=== PATIENT | female | born 1995 | race Caucasian/White ===

== ENCOUNTER 2018-12-30 15:43 | Emergency (ER) | payer OTHER ==
--- NOTE | 2018-12-30 15:52 | PDOC ---
Rapid Medical Evaluation Time Seen by Provider: 12/30/18 15:51 Medical Evaluation: 12/30/18 15:51 I have performed a brief in-person evaluation of this patient. The patient presents with a chief complaint of:L foot pain x 1 week. No trauma. Denies pmhx Pertinent physical exam findings:deferred to ED provider I have ordered the following:nothing The patient will proceed to the ED for further evaluation. Discharge Disposition - Diagnosis Foot pain, left - Referrals - Patient Instructions - Post Discharge Activity
[2018-12-30 16:06] VITALS: BMI 25.4
--- NOTE | 2018-12-30 17:00 | PDOC ---
History of Present Illness - General Chief Complaint: Chest Pain Stated Complaint: CHEST PAIN JOB INJURY Time Seen by Provider: 12/30/18 15:51 History Source: Patient Exam Limitations: No Limitations - History of Present Illness Initial Comments: 12/30/18 16:52 23 y/o female with PMH of anxiety (however she does not take anything for her anxiety, presented to the ED with complaints of chest pain and palpitations. Patient states that the pain started while she was in class, she describes it as a sharp almost muscle cramp, at its worst was a 7/10. she endorses associated palpitations and dizziness- this has happened to her in the past. She does endorse to not drinking enough water and to drinking lots of cough and red bull. However, all she had was one cup of coffee this morning. She has had this in the past where it has been associated with palpitations. The pain is not associated with radiation. She does state that she did have some shortness of breath this AM with it as well. Of note, she recently traveled to [place] (was there from december 07-december 13). she denies any recent illnesses or any sick contacts. She had seen a settlement processor back in 2012 she thinks where an EKG was done at that time which was normal. She is not on any OCP's. She endorses a strong family history of cardiac problems. Timing/Duration: constant Severity: moderate Associated Symptoms: reports: chest pain, shortness of breath. denies: diaphoresis, headaches Past History - Travel Traveled outside of the country in the last 30 days: No Close contact w/someone who was outside of country & ill: No - Past Medical History Allergies/Adverse Reactions: Allergies Allergy/AdvReac Type Severity Reaction Status Date / Time No Known Allergies Allergy Verified 12/30/18 16:03 Home Medications: Ambulatory Orders Sulfamethoxazole/Trimethoprim [Bactrim Ds Tablet] 1 each PO BID #10 tablet 12/30 COPD: No - Surgical History Other Surgical History: 12/30/18 17:00 tonsils and adenoids - Family Disease History Family Disease History: Diabetes: Father, Mother, Heart Disease: Father, Mother - Reproductive History LMP comment: ended period on 12/28 LMP Normal: Yes Is Patient Now?: No - Suicide/Smoking/Psychosocial Hx Smoking History: Current every day smoker Have you smoked in the past 12 months: Yes Number of Cigarettes Smoked Daily: 3 Information on smoking cessation initiated: No Hx Alcohol Use: No Drug/Substance Use Hx: No Review of Systems - Review of Systems Able to Perform ROS?: Yes Is the patient limited Armenian proficient: No Constitutional: No: Fever HEENTM: No: Blurred Vision Respiratory: No: Cough Cardiac (ROS): Yes: Chest Pain, Lightheadedness, Palpitations : Yes: Burning. No: Dysuria, Discharge Musculoskeletal: No: Muscle Weakness Neurological: Yes: Headache. No: Numbness *Physical Exam - Vital Signs Last Vital Signs Temp Pulse Resp BP Pulse Ox 97.8 F 64 18 119/84 99 12/30/18 16:04 12/30/18 16:04 12/30/18 16:04 12/30/18 16:04 12/30/18 16:04 - Physical Exam General Appearance: Yes: Nourished Neck: positive: Normal Thyroid Respiratory/Chest: positive: Lungs Clear, Normal Breath Sounds Cardiovascular: positive: Regular Rhythm, Regular Rate, S1, S2 Gastrointestinal/Abdominal: positive: Normal Bowel Sounds, Flat, Soft. negative : Tender Musculoskeletal: negative: CVA Tenderness Integumentary: positive: Normal Color Neurologic: positive: Fully Oriented, Alert ED Treatment Course - LABORATORY CBC & Chemistry Diagram: 12/30/18 17:00 12/30/18 17:00 Medical Decision Making - Medical Decision Making 12/30/18 17:03 cbc/cmp/cardiac profile ekg *DC/Admit/Observation/Transfer Diagnosis at time of Disposition: Chest pain, Palpitations - Discharge Dispostion Disposition: HOME Condition at time of disposition: Stable - Prescriptions Prescriptions: Sulfamethoxazole/Trimethoprim [Bactrim Ds Tablet] 1 each PO BID #10 tablet - Referrals Referrals: Romeo Bobby MD [Staff Physician] - 1 week Home Banks MD [Staff Physician] - 1 week - Patient Instructions Printed Discharge Instructions: GERD Diet, DI for Gastroesophageal Reflux Disease (GERD) Additional Instructions: we are sending you home with antibiotics for your urinary tract infection; take the medication Bactrim twice a day for 5 days we are referring you to a primary care physician to follow up with in one week we are referring you to a settlement processor for you to follow up with in one week *if you begin to have worsening or concerning symptoms please return to the emergency room immediately - Post Discharge Activity - Attestations Physician Attestion: 12/30/18 18:21 Rachel Khan
[2018-12-30 17:08] LABS: EOS % 1.4 % (0-4.5); HEMATOCRIT 38.2 % (32.4-45.2); HEMOGLOBIN 13.1 GM/dL (10.7-15.3); LYMPH % 35.1 % (8-40); MCHC 34.2 g/dl (32.0-36.0); MEAN CELL VOLUME 90.7 fl (80-96); MEAN PLT VOLUME 9.4 fl (7.5-11.1); MONO % 10.6 % (3.8-10.2); NEUT % 51.9 % (42.8-82.8); PLATELET COUNT 226 K/MM3 (134-434); RBC 4.22 M/mm3 (3.60-5.2); RDW 13.1 % (11.6-15.6)
[2018-12-30 17:24] LABS: EPI CELLS 6.1 /HPF (0-5/HPF); HCG,QUALITATIVE URINE Negative; PH,URINE 6.5 (5.0-8.0); URINE APPEARANCE CLEAR; URINE BACTERIA 142.8 /hpf (NEGATIVE); URINE BILIRUBIN NEGATIVE (NEGATIVE); URINE CASTS 4 /lpf (0-8); URINE COLOR YELLOW; URINE GLUCOSE (UA) NEGATIVE (NEGATIVE); URINE KETONE NEGATIVE (NEGATIVE); URINE LEUK ESTERASE TRACE (NEGATIVE); URINE NITRITE NEGATIVE (NEGATIVE); URINE PROTEIN NEGATIVE (NEGATIVE); URINE RBC 3 /hpf (0-4); URINE WBC 2 /hpf (0-5)
[2018-12-30 17:43] LABS: ALBUMIN 3.5 g/dl (3.4-5.0); ALK PHOS 66 U/L (45-117); ANION GAP 7 MMOL/L (8-16); BILIRUBIN,TOTAL 0.3 mg/dL (0.2-1); BLOOD UREA NITROGEN 10 mg/dL (7-18); CALCIUM 8.6 mg/dL (8.5-10.1); CHLORIDE 108 mmol/L (98-107); CO2 25 mmol/L (21-32); CREATININE 0.6 mg/dL (0.55-1.3); GLUCOSE,RANDOM 76 mg/dL (74-106); SGOT/AST 18 U/L (15-37); SGPT/ALT 25 U/L (13-61); SODIUM 141 mmol/L (136-145); TOT PROT 6.4 g/dl (6.4-8.2)
--- NOTE | 2018-12-30 18:53 | PDOC ---
Documentation entered by Sam Miller SCRIBE, acting as scribe for Laura Muhammad MD. Laura Muhammad MD: This documentation has been prepared by the Paul blake Matthew, SCRIBE, under my direction and personally reviewed by me in its entirety. I confirm that the documentation accurately reflects all work, treatment, procedures, and medical decision making performed by me. Attending Attestation - Resident Resident Name: Rachel Khan - [facility] HPI: 12/30/18 18:02 Patient is a 23 year old female with a significant past medical history of Anxiety, who presents to the ED with complaints of chest pain that began earlier today. Patient reports experiencing chest pain that began today while in class that she states is a sharp pulling non radiating 7/10 pain as well as associated palpitations, and lightheadedness. She reports experiencing multiple similar episodes in the past, prompting her to see a wildlife biology technician who conducted an EKG with results being normal. Patient reports an increase in her anxiety when she experiences the chest pain. Patient states she has been experiencing intermittent episodes of dysuria that began 3 days ago. Denies Sob. Denies nausea, vomiting. Denies fever, chills. Denies contact with sick individuals, Denies constipation, diarrhea. Denies hematuria. Denies any other symptoms. Allergies: None Social history: Current smoker 2-3 cigarettes per day. Social drinker. No illicit drugs. Surgical history: None PMD: None - Physicial Exam PE: 12/30/18 18:18 23-year-old female who has had chest pain today. She has had intermittent problems with similar symptoms in the past and has had an EKG done in the past. SHe is well-nourished, well-developed 23-year-old female no acute distress. Head normocephalic/atraumatic. Neck no bruits no JVD. Lungs to auscultation. CVS regular rate and rhythm S1, S2, no rubs, no gallops or murmurs. Abdomen flat, nontender. No flank tenderness Extremities no edema. Skin warm and dry. Neuro remains sinus surgery, ambulatory, no gross focal neural deficits psych appropriate,calm - Medical Decision Making 12/30/18 18:20 Labs show severe unremarkable with negative troponin, normal kidney function, no anemia, and normal electrolytes. EKG was normal sinus rhythm 82 bpm -Patient to stop smoking cigarettes and also that her alcohol intake may be increasing her GERD Impression atypical chest pain, GERD. Recommend patient follow up with primary care physician and request echo,try tums or maalox for relief
[2018-12-30 19:11] VITALS: BP 124/70; PULSE 73; TEMP 98.1
--- NOTE | 2018-12-31 12:37 | EKG ---
Test Reason : Blood Pressure : / mmHG Vent. Rate : 082 BPM Atrial Rate : 082 BPM P-R Int : 120 ms QRS Dur : 088 ms QT Int : 388 ms P-R-T Axes : 050 074 049 degrees QTc Int : 453 ms NORMAL SINUS RHYTHM RSR' OR QR PATTERN IN V1 SUGGESTS RIGHT VENTRICULAR CONDUCTION DELAY Confirmed by MD MOISÉS, NGOC ([id number]) on 12/31/2018 12:37:25 PM Referred By: Confirmed By:NGOC CURIEL MD
== END 2018-12-30 18:30 | disposition home or self-care (01) ==
LOC: JER 15:43
DX: R07.9 Chest pain, unspecified (principal); K21.9 Gastro-esophageal reflux disease without esophagitis; F41.9 Anxiety disorder, unspecified
CPT/HCPCS: 36415; 80053; 81003; 82550; 82553; 84484; 84703; 85025; 93005; 93010; 99283-25